=== PATIENT | female | born 1970 | race Caucasian/White ===

== ENCOUNTER 2017-03-23 23:19 | Emergency (ER) | payer SELFPAY ==
[~2017-03-23] VITALS: Ht 149.9 cm; Wt 86.2 kg
== END 2017-03-24 01:04 | disposition short-term general hospital (02) ==
LOC: ER 23:19
DX: J18.9 Pneumonia, unspecified organism (principal); R01.1 Cardiac murmur, unspecified; T23.111A Burn of first degree of right thumb (nail), initial encounter; T23.191A Burn of first degree of multiple sites of right wrist and hand, initial encounter; G43.909 Migraine, unspecified, not intractable, without status migrainosus; F41.9 Anxiety disorder, unspecified; F32.9 Major depressive disorder, single episode, unspecified; E66.9 Obesity, unspecified; F17.210 Nicotine dependence, cigarettes, uncomplicated; Z23 Encounter for immunization; Z98.51 Tubal ligation status; Z98.890 Other specified postprocedural states; X10.2XXA Contact with fats and cooking oils, initial encounter